=== PATIENT | female | born 1945 | race Two or more races ===

== ENCOUNTER 2023-01-01 13:54 | Inpatient (IN) | payer OTHER ==
[~2023-01-01] VITALS: Ht 162.6 cm; Wt 56.7 kg
--- NOTE | 2023-01-01 14:04 | NUR ---
SE RECIBE PACIENTE EN AMBULANCIA LA MISMA SE ENCUENTRA ALERTA Y ORIENTADA X3, VERBALIZA QUE DESDE HOY HACE UNAS HORAS COMENZO A SENTIR DEBILIDAD GENERALIZADA. SE MONITOREAN S/V, SE LE REALIZA DXT Y SE UBICA EN DACIA POR PARAMEDICOS.
--- NOTE | 2023-01-01 17:12 | NUR ---
MS VALENTE ORIENTA PTE SOBRE TX MEDICO EL CUAL REFIERE ENTENDER.SE LE EXTRAEN MUESTRAS BAJO MEDIDAS ASEPTICAS,SE CANALIZA Y SE ADMINISTRAN MEDICAMENTO BENNY ORDEN MEDICA.SE ENTREGA CONTRASTE Y SE NOTIFICA CT PENDIENTE.
--- NOTE | 2023-01-01 18:49 | NUR ---
182 SE CONTACTA A [facility] PARA CONOCER HX DE PTE REFIERE QUE PTE NO TIENE RECORD. SE REQUIZAN 4 UNIDADES DE PRBC'S. SE COLECTAN TUBOS PILOTOS, BAJO MEDIDAS ASEPTICAS.
[2023-01-02] MEDS ORDERED: BENICAR HCT 401 EACH PO (15:43)
[2023-01-03] MEDS ORDERED: EXEMESTANE25 MG (13:33)
[2023-01-03] MEDS ORDERED: MONTELUKAST SOD10 MG (13:34)
[2023-01-03] MEDS ORDERED: DILTIAZEM ER120 M2 (13:34)
[2023-01-03] MEDS ORDERED: SYMBICORT 80/10.2 GM (13:34)
[2023-01-03] MEDS ORDERED: PROPRANOLOL HCL80 MG (13:34)
[2023-01-03] MEDS ORDERED: LEVOTHYROXINE88 MCG (13:34)
== END 2023-01-04 15:55 | disposition left against medical advice (07) | DRG 392 ==
LOC: ER 13:54 → SEC-K 19:28 → ICU 19:28 → MEDJ 01-03 13:15 → MEDI 01-03 19:39 → MEDJ 01-03 20:52
PROVIDERS: ADMIT Internal Medicine; ATTEND Internal Medicine
PROC: BW21YZZ Computerized Tomography (CT Scan) of Abdomen and Pelvis using Other Contrast (ICD-10-PCS; principal; 2023-01-01)
PROC: 30233N1 Transfusion of Nonautologous Red Blood Cells into Peripheral Vein, Percutaneous Approach (ICD-10-PCS; 2023-01-01)
PROC: 4A12X4Z Monitoring of Cardiac Electrical Activity, External Approach (ICD-10-PCS; 2023-01-03)
DX: K52.89 Other specified noninfective gastroenteritis and colitis (principal); K62.5 Hemorrhage of anus and rectum; D61.818 Other pancytopenia; C20 Malignant neoplasm of rectum; D62 Acute posthemorrhagic anemia